=== PATIENT | male | born 1955 | race Caucasian/White ===

== ENCOUNTER 2023-11-30 09:17 | Emergency (ER) | payer MEDICARE, MEDICAID, SELFPAY ==
[2023-11-30] VITALS (7 sets, daily range): BP systolic 164–187; BP diastolic 83–94; PULSE 64–78; RESP 16; TEMP 36.6; O2SAT 97–99
--- NOTE | 2023-11-30 09:37 | CT_ITS ---
FINAL REPORT TECHNIQUE: Noncontrast exam CLINICAL HISTORY: fall, struck face FINDINGS: No abnormal density is seen. Ventricles are normal. There is no hemorrhage. No mass effect is seen. Bone windows show no evidence of fracture. There is a right frontal scalp hematoma. IMPRESSION: No acute intracranial abnormality. Reviewed, Interpreted and Dictated by Alison Wise MD Transcribed by Pretty Galvin Authenticated and [facility]
--- NOTE | 2023-11-30 09:37 | CT_ITS ---
FINAL REPORT TECHNIQUE: Axial images were obtained from skull base to the thoracic inlet by computed tomography. Coronal and sagittal reconstruction process performed. This study was performed with techniques to keep radiation doses as low as reasonably achievable (ALARA). Individualized dose reduction techniques using automated exposure control or adjustment of mA and/or kV according to the patient''s size were employed. CLINICAL HISTORY: fell 6 feet to face FINDINGS: There is no acute fracture or subluxation. There is advanced degenerative disc disease and facet arthropathy of the lower cervical spine. The disc spaces are preserved. The facets are normally aligned. The soft tissues are unremarkable. Limited images of the lung apices are unremarkable. IMPRESSION: No acute fracture. Reviewed, Interpreted and Dictated by Alison Wise MD Transcribed by Pretty Galvin Authenticated and [facility]
--- NOTE | 2023-11-30 09:37 | CT_ITS ---
FINAL REPORT TECHNIQUE: Thin section axial CT with coronal reconstruction without IV contrast CLINICAL HISTORY: fell 6 feet to face FINDINGS: There is a buckle fracture of the right zygomatic arch. Bony defect is seen of the inferior right maxilla which may be due to chronic sinusitis or odontogenic disease. 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 There is soft tissue swelling of the right paramidline frontal region. TMJs are intact. IMPRESSION: Buckle fracture of the right zygomatic arch. Reviewed, Interpreted and Dictated by Alison Wise MD Transcribed by Pretty Galvin Authenticated and [facility]
--- NOTE | 2023-11-30 09:38 | ED_ITS ---
Discharge Plan Disposition Patient Disposition: Home, Self-Care Chief Complaint: Trauma Alert Prescriptions Prescriptions: No Action atorvastatin 40 mg tablet 40 mg PO DAILY Patient Comments: TAKE ONE TABLET BY MOUTH EVERY DAY lisinopril 20 mg tablet 20 mg PO DAILY Patient Comments: TAKE ONE TABLET BY MOUTH EVERY DAY amlodipine 5 mg tablet 5 mg PO DAILY Patient Comments: TAKE ONE TABLET BY MOUTH EVERY DAY aspirin 81 mg tablet,delayed release (DR/EC) 81 mg PO DAILY Patient Comments: TAKE ONE TABLET BY MOUTH EVERY DAY Referrals Follow up/Referrals: Provider,Referral, MD [Primary Care Provider] - See instructions Activity Restrictions/Add. Instructions Additional Instructions/Restrictions: Continue to give the antibiotics for the full course. Talk to family doctor about referral to facial surgery at [facility] if continuing to have significant pain. Sinus rinses with nasal saline Kit as well as nasal steroid can help. Continue taking daily cetirizine to help with inflammation as well. Call your family doctor to establish care for this visit to the emergency department and schedule follow-up within 48 hours to ensure improvement. If you have any worsening of your condition or any other concerning signs or symptoms, return to the emergency department or your primary care doctor for further evaluation. Clinical Impressions Clinical Impression: Fracture of right zygomatic arch, Fall, Complex laceration of face Discharge ED Provider: Soren Russell General Adult HPI General Chief complaint: Trauma Alert Stated complaint: Fall Time Seen by Provider: 11/30/23 09:29 History of Present Illness HPI narrative: Please note that above description of symptoms, in this electronic medical record under categorization of recalled from ER triage doctor by RN are reflective of an initial nursing assessment, however, is not reflective of my full history and physical exam that was personally taken and clarified. Consequentially, this preceding description of symptoms, which may include the patient's categorized chief complaint in the EMR, do not reflect my personal clinical impression, and the ultimate description of history of present illness and patient stated complaints should be deferred to this section of the note. Unless stated otherwise or congruent with this section of the note, additional signs, symptoms, or incongruence should be interpreted as inaccurate with my clinical impression. Related Data Home Medications Medication Instructions Recorded Confirmed amlodipine 5 mg tablet 5 mg PO DAILY 11/30/23 11/30/23 aspirin 81 mg tablet,delayed 81 mg PO DAILY 11/30/23 11/30/23 release atorvastatin 40 mg tablet 40 mg PO DAILY 11/30/23 11/30/23 lisinopril 20 mg tablet 20 mg PO DAILY 11/30/23 11/30/23 Allergies Allergy/AdvReac Type Severity Reaction Status Date / Time No Known Allergies Allergy Verified 11/30/23 10:18 [facility] Disclaimer: The information contained in this section may have been updated after the patient was seen, as this information can be updated by other users. Social History Smoking Status: Current every day smoker alcohol intake: never current occupational status: employed Travel in the last 8 weeks: None ROS Obtained: Yes All systems reviewed & no additional complaints except as documented Physical Exam General General appearance: alert and in no apparent distress Head Head exam: normocephalic and other (Hematoma overlying forehead just between the eyebrows. 3 cm laceration connecting right and left eyebrows. 3 cm laceration also traveling down the bridge of the nose from the nasal bridge down to the tip of the nose. No nasal septal hematoma) Eye Eye exam: Present normal appearance, PERRL and EOMI ENT ENT exam: Present mucous membranes moist and other (No dental trauma. Lip and teeth numbness anteriorly maxilla) Neck Neck exam: Present normal inspection, full ROM, trachea midline and other (Cervical collar placed); Absent tenderness Chest Chest inspection: Present normal inspection; Absent tenderness Respiratory Respiratory exam: Present normal lung sounds bilaterally; Absent respiratory distress, wheezes, stridor, accessory muscle use or prolonged expiratory phase Cardiovascular Cardiovascular exam: Present regular rate and normal rhythm Abdominal Exam Abdominal exam: Present soft; Absent distention, tenderness, guarding, rebound or rigidity Extremities Exam Extremities exam: Present other (Superficial skin tear posterior right upper extremity. Skin tears bilateral anterior tibias and knees); Absent edema Neurological Exam Neurological exam: Present alert, oriented X3, CN II-XII intact and normal gait; Absent motor sensory deficit Skin Skin exam: Present warm and dry; Absent diaphoresis or erythema Medical Decision Making Medical Records Medical records reviewed: Yes I reviewed the patient's medical records. [place] Inquiry Pt receiving controlled substance: No [place] was queried for this patient: No Vital Signs: 11/30/23 09:26 11/30/23 10:03 11/30/23 10:30 Pulse Rate 71 64 Pulse Rate [Right Brachial] 78 Respiratory Rate 16 Blood Pressure 164/85 H 175/86 H Blood Pressure [Right Arm] 182/86 H Blood Pressure Mean [Right Arm] 118 Blood Pressure Source [Right Arm] Automatic Cuff Blood Pressure Position [Right Arm] Sitting 02 Sat by Pulse Oximetry 98 98 97 Oxygen Delivery Method Room Air Room Air 11/30/23 10:50 Pulse Rate 73 Pulse Rate [Right Brachial] Respiratory Rate Blood Pressure 186/94 H Blood Pressure [Right Arm] Blood Pressure Mean [Right Arm] Blood Pressure Source [Right Arm] Blood Pressure Position [Right Arm] 02 Sat by Pulse Oximetry 97 Oxygen Delivery Method Orders (Tests/Meds): ED MEDICATIONS Generic Name Dose Route Start Last Admin Trade Name Freq PRN Reason Stop Dose Admin Cefazolin Sodium 2 gm/ Sodium 100 mls @ 200 mls/hr 11/30/23 12:30 Chloride IV 11/30/23 12:59 ONCE ONE Discontinued Medications Generic Name Dose Route Start Last Admin Trade Name Freq PRN Reason Stop Dose Admin Acetaminophen 1,000 mg 11/30/23 09:37 11/30/23 10:24 Acetaminophen 1,000mg/100ml Vial IV 11/30/23 09:38 1,000 mg ONCE ONE Administration Ketorolac Tromethamine 15 mg 11/30/23 09:37 11/30/23 10:24 Ketorolac 30mg/Ml Vial IV 11/30/23 09:38 15 mg ONCE ONE Administration Lidocaine HCl 20 ml 11/30/23 09:49 11/30/23 11:05 Lidocaine 1% 20ml Mdv SQ 11/30/23 09:50 20 ml ONCE ONE Administration Tetanus/Reduced Diphtheria/Acell Pertussis 0.5 ml 11/30/23 09:41 11/30/23 10:24 Tet/Diphth/Pert-Adult 0.5ml Syringe IM 11/30/23 09:42 0.5 ml .ONCE ONE Administration ORDERS Category Date Time Status CT cervical spine wo con Stat Cat Scan 11/30/23 09:[address] facial bones wo con Stat Cat Scan 11/30/23 09:[address] head/brain wo con Stat Cat Scan 11/30/23 09:37 Completed Medical Decision Narrative: 68-year-old male history of hypertension, hyperlipidemia, not on anticoagulation presenting with fall. Patient states that he was up on a ladder that was leaning against a structure. Ladder slipped out underneath him, he went down forward, caught himself on his feet, hands, knees, but his face hit the ground on concrete. He fell about 6 feet. Did not lose consciousness. No vision changes, neck pain, facial pain is currently 2 out of 10. Associated with numbness of his front maxillary incisors, but no dental trauma. Able to breathe through his nose, no difficulty or pain with breathing or range of motion of neck. No other pain elsewhere. States that he does have scrapes on his hands and knees, but no overt pain. Ambulatory into the emergency department. History was obtained via conversation with patient. On arrival, patient hemodynamically stable, alert, oriented x4, appropriate, GCS 15, moving all extremities spontaneously, pupils equal and reactive to light. Full physical exam performed and significant for facial lacerations and trauma as above. EOMs intact without entrapment or double vision. Bilateral TMs normal. No palpable skull fracture. Oral exam normal. No nasal septal hematoma. Neck and spines nontender with full range of motion. Cardiopulmonary exam within normal limits, no chest tenderness, abdomen tenderness, or tenderness of the extremities. Pelvis is stable. He does have superficial abrasions on bilateral upper and lower extremities, but they are nontender. Neurovascular intact. Differential includes intracranial bleed, critical cervical spine injury, facial fracture, facial lacerations, foreign body, among others. Patient was given fluids, Toradol, Tdap for symptomatic management and correction of underlying abnormalities. Workup independently interpreted and significant for no acute skull fracture. Patient also has no intracranial bleed or significant cervical spine injury. CT face with zygomatic arch fracture on the right. See radiology read for full review of final results. Patient's face was closed with 10 stitches across the forehead and 8 stitches down the bridge of the nose. 2 g Ancef was administered for open fracture. Because patient at baseline without signs or symptoms of clinical decompensation, deemed appropriate for discharge. Results were relayed to patient who voiced understanding and were agreeable to outpatient management and follow up. I discussed my clinical impression with patient and answered all questions. At this time, the evidence for any other entities in the differential is insufficient to warrant any further testing or ED observation. This was explained as well. Advisory was given that persistent or worsening symptoms require further evaluation. I confirmed the understanding of this discussion. Patient already on Augmentin for odontogenic infection, I feel this is appropriate to continue for infection prevention. 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 Electronic accounts receivable accountant of the spoken language may permit errors. Although I have reviewed the note, some errors may still exist. Procedures Laceration Laceration 1: Site: face Size (cm): 3 Description: linear Depth: simple, single layer Local Anesthetic: lidocaine 1% Amount of anesthesia used (mL): 10 Pre-repair: wound explored and deep structures intact Skin layer closed with: vicryl Size (cm): 4-0 Number of sutures: 10 Technique: simple, interrupted Laceration 2: Site: face Size (cm): 3 Description: linear Depth: simple, single layer Local Anesthetic: lidocaine 1% Amount of anesthesia used (mL): 10 Pre-repair: wound explored and deep structures intact Skin layer closed with: vicryl Size (cm): 4-0 Number of sutures: 8 Technique: simple, interrupted Critical Care Critical Care Time Critical Care Time: Yes (Trauma, MSK, neurologic) Attestation: On 11/30/23, the high probability of a clinically significant, sudden or life threatening deterioration of the following system(s) required my full and direct attention, intervention and personal management. The time I documented below is in addition to time spent performing reported procedures but includes the following listed in this critical care notation. Total Time Total Critical Care Time: 35
[2023-11-30] MEDS: KETOROLAC 30MG/ML VIAL 15 MG IV (10:24)
[2023-11-30] MEDS: TET/DIPHTH/PERT-ADULT 0.5ML SYRINGE 0.5 ML IM (10:24)
[2023-11-30] MEDS: ACETAMINOPHEN 1,000MG/100ML VIAL 1000 MG IV (10:24)
[2023-11-30] MEDS: LIDOCAINE 1% 20ML MDV 20 ML SQ (11:05)
--- NOTE | 2023-11-30 11:10 | PC.NURSE ---
Dr. Russell at for lac repair
[2023-11-30] MEDS: CEFAZOLIN SODIUM 2 GM in 0.9 % SODIUM CHLORIDE 100 ML IV (12:30)
== END 2023-11-30 13:08 | disposition home or self-care (01) ==
PROVIDERS: Emergency Provider Emergency Medicine
DX: S02.40EA Zygomatic fracture, right side, initial encounter for closed fracture (principal); S01.81XA Laceration without foreign body of other part of head, initial encounter; S01.21XA Laceration without foreign body of nose, initial encounter; W11.XXXA Fall on and from ladder, initial encounter; Z23 Encounter for immunization
CPT/HCPCS: 12014; 70450; 70486; 72125; 90471; 90715; 96365; 96375; 99285; J0131; J0690; J1885